=== PATIENT | female | born 1995 | race Two or more races ===

== ENCOUNTER 2016-04-05 14:49 | Emergency (ER) | payer SELFPAY ==
--- NOTE | 2016-04-05 15:22 | ER Document Report ---
ED Medical Screen (RME) - General Chief Complaint: Vag Bleeding, +preg <12wks Stated Complaint: VAGINAL BLEEDING Notes: vaginal bleeding and . LMP ? December? Had rectal bleeding yesterday. TRAVEL OUTSIDE OF THE [place] IN LAST 30 DAYS: No - Related Data Allergies/Adverse Reactions: No Known Allergies Allergy (Unverified 04/05/16 15:12) Past Medical History - Social History Chew tobacco use (# tins/day): No Frequency of alcohol use: None Drug Abuse: None Physical Exam - Vital signs Vitals: Temp Pulse Resp BP Pulse Ox 98.4 F 100 16 124/76 100 04/05/16 15:13 04/05/16 15:13 04/05/16 15:13 04/05/16 15:13 04/05/16 15:13 Course - Vital Signs Vital signs: Temp Pulse Resp BP Pulse Ox 98.4 F 100 16 124/76 100 04/05/16 15:13 04/05/16 15:13 04/05/16 15:13 04/05/16 15:13 04/05/16 15:13
[2016-04-05 15:44] LABS: ABSOLUTE EOSINOPHILS # (AUTO) 0.1 10^3/uL (0.0-0.6); ABSOLUTE LYMPHOCYTES (AUTO) 2.2 10^3/uL (0.5-4.7); ABSOLUTE MONOCYTES (AUTO) 0.5 10^3/uL (0.1-1.4); ABSOLUTE NEUT (AUTO) 4.2 10^3/uL (1.7-8.2); BASOPHILS % (AUTO) 0.4 % (0-2); EOSINOPHILS % (AUTO) 1.4 % (0-6); HEMATOCRIT 36.8 % (36.0-47.0); HEMOGLOBIN 12.2 g/dL (12.0-15.5); HGB HCT DIFFERENCE -0.2; LYMPHOCYTES % (AUTO) 31.4 % (13-45); MEAN CORPUSCULAR HEMOGLOBIN 29.6 pg (27.0-33.4); MEAN CORPUSCULAR HGB CONC 33.1 g/dL (32.0-36.0); MEAN CORPUSCULAR VOLUME 90 fl (80-97); RED BLOOD COUNT 4.11 10^6/uL (3.72-5.28); RED CELL DISTRIBUTION WIDTH 14.2 % (11.5-14.0); SEGMENTED NEUTROPHILS % (AUTO) 59.8 % (42-78)
--- NOTE | 2016-04-05 17:34 | ER Document Report ---
ED GI/ - General Mode of Arrival: Ambulatory Information source: Patient TRAVEL OUTSIDE OF THE [place] IN LAST 30 DAYS: No - HPI Patient complains to provider of: Vaginal bleeding Associated symptoms: Other - See above <KYUNG TAYLOR - Last Filed: 04/05/16 19:50> <EDWINSHERRELL - Last Filed: 04/20/16 01:15> - General Chief Complaint: Vag Bleeding, +preg <12wks Stated Complaint: VAGINAL BLEEDING Notes: Patient is a 20 year old female who presents to the emergency department complaining of vaginal bleeding onset this morning. Patient reports she is less than 12 weeks with her last period occurring in December, this is patient's first . Patient states that the bleeding has been spotty and denies any abdominal pain or vaginal discharge. Patient reports that she has had rough sex within the last 24 hours. Patient also reports she had bloody stools 2 days ago due to straining from passing a constipated bowel movement but this has since resolved and she has had normal bowel movements since. ( KYUNG TAYLOR) - Related Data Allergies/Adverse Reactions: No Known Allergies Allergy (Verified 04/06/16 21:00) Past Medical History - General Information source: Patient Last Menstrual Period: 12/22/2015 - Social History Smoking Status: Never Smoker Chew tobacco use (# tins/day): No Frequency of alcohol use: None Drug Abuse: None Family History: Reviewed & Not Pertinent Patient has suicidal ideation: No Patient has homicidal ideation: No Surgical Hx: Negative - Immunizations Hx Diphtheria, Pertussis, Tetanus Vaccination: Yes <KYUNG TAYLOR - Last Filed: 04/05/16 19:50> Review of Systems - Review of Systems Constitutional: No symptoms reported EENT: No symptoms reported Cardiovascular: No symptoms reported Respiratory: No symptoms reported Gastrointestinal: See HPI, Blood streaked bowels. denies: Abdominal pain Genitourinary: No symptoms reported Female Genitourinary: See HPI, Vaginal bleeding. denies: Vaginal discharge Musculoskeletal: No symptoms reported Skin: No symptoms reported Hematologic/Lymphatic: No symptoms reported Neurological/Psychological: No symptoms reported -: Yes All other systems reviewed and negative <KYUNG TAYLOR - Last Filed: 04/05/16 19:50> Physical Exam - Vital signs Interpretation: Normal - General General appearance: Appears well, Alert - HEENT Head: Normocephalic, Atraumatic - Respiratory Respiratory status: No respiratory distress Chest status: Nontender Breath sounds: Normal Chest palpation: Normal - Cardiovascular Rhythm: Regular Heart sounds: Normal auscultation Murmur: No - Abdominal Inspection: Normal Distension: No distension Bowel sounds: Normal Tenderness: Nontender Organomegaly: No organomegaly - Extremities General upper extremity: Normal inspection, Normal ROM, Normal strength General lower extremity: Normal inspection, Normal ROM, Normal strength, Normal temperature - Neurological Neuro grossly intact: Yes Cognition: Normal Orientation: AAOx4 Bert Coma Scale Eye Opening: Spontaneous [place] Coma Scale Verbal: Oriented [place] Coma Scale Motor: Obeys Commands [place] Coma Scale Total: 15 Speech: Normal - Psychological Associated symptoms: Normal affect, Normal mood - Skin Skin Temperature: Warm Skin Moisture: Dry Skin Color: Normal <KYUNG TAYLOR - Last Filed: 04/05/16 19:50> Course - Laboratory Result Diagrams: 04/05/16 15:20 - Consults Dr. Toribio Time consulted: 19:33 - Discussed ultrasound results and follow up care for patient <KYUNG TAYLOR - Last Filed: 04/05/16 19:50> - Laboratory Result Diagrams: 04/05/16 15:20 <SHERRELL PINEDA - Last Filed: 04/20/16 01:15> - Re-evaluation Re-evalutation: 04/05/16 18:46 I personally performed the services described in the documentation, reviewed and edited the documentation which was dictated to my scribe in my presence, and it accurately records my words and actions. Patient presents emergency, chief complaint of spotting this morning. She is has not had any care but has not had a period since December. She said she had rough intercourse last evening for she woke up and had some spotting on the tissue no active bleeding pain discharge history gonorrhea or chlamydia she has a dull pain flank pain is well-appearing nontoxic in no acute distress. Abdominal examination she has no acute tenderness guarding rebound rigidity. She states that she is chronically constipated 2 days ago she strained to have a bowel movement and had some blood drop on the tissue of the toilet paper. She said she's had subsequent bowel movement since then without any further bleeding. 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 However the patient's quantitative beta hCG is only [address] Toribio is consultant for INDUSTRY SEGMENT SPECIALIST he said that doesn't make sense to him that he would expect significantly elevated quantitative beta hCGs in a patient with molar . He stated to have her call the office at 8:00 tomorrow and to be seen tomorrow a.m. in the office explained to her that there are some concerns on the ultrasound and there and repeat the ultrasound in the office tomorrow. She is to return immediately for increasing worsening or new symptoms (SHERRELL PINEDA) - Vital Signs Vital signs: Temp Pulse Resp BP Pulse Ox 98.6 F 77 18 122/77 96 04/05/16 19:54 04/05/16 19:54 04/05/16 19:54 04/05/16 19:54 04/05/16 19:54 (KYUNG TAYLOR) (SHERRELL PINEDA) - Laboratory Laboratory results interpreted by me: 04/05/16 04/05/16 15:20 15:20 RDW 14.2 H Beta HCG, Quant 6699.60 H (KYUNG TAYLOR) (SHERRELL PINEDA) Discharge <KYUNG TAYLOR - Last Filed: 04/05/16 19:50> <SHERRELL PINEDA - Last Filed: 04/20/16 01:15> - Discharge Clinical Impression: Vaginal bleeding, Abnormal ultrasound Condition: Stable Disposition: HOME, SELF-CARE Additional Instructions: : You are . care is best started as early in as possible. If you're unsure about continuing this , you should discuss this with your physician or with associate professor of radiology at [facility]. You should take only medications approved by your physician. Acetaminophen can safely be taken for minor pains. As a rule, medication for chronic conditions such as asthma or seizures can safely be continued. You should discuss with the physician every medicine you take. Any regular exercise program can be continued. Talk to your physician, however, before engaging in competitive or demanding sports. Alcohol, smoking, and "street drugs" are dangerous to your baby. Cocaine is especially dangerous. Don't use any illicit drugs! BLEEDING DURING EARLY : You have been evaluated for passing blood while . While we take this symptom very seriously, most women with your degree of bleeding will go on to have a perfectly normal baby. At this time, there is no indication that a miscarriage will occur. (A miscarriage occurs when the fetus is abnormal. There is no medicine or treatment to prevent it.) A more serious cause of bleeding is tubal (or ectopic) . An ultrasound usually can show whether the is in the uterus or in the tube. Sometimes in early , no fetus is seen. In this case, careful follow-up, including repeat blood tests and repeat ultrasound, is necessary. Do not douche or have sex for at least a week, or until OK'd by the doctor. Don't use tampons. Call the doctor or return for re-examination if there is an increase in bleeding or cramping, extreme weakness, fainting, new abdominal pain, fever, or passage of tissue. FOLLOW-UP CARE: If you have been referred to a physician for follow-up care, call the physician s office for an appointment as you were instructed or within the next two days. If you experience worsening or a significant change in your symptoms (very heavy bleeding with large clots of blood, passage of tissue, more severe abdominal / pelvic pain or cramping, feeling faint or severe weakness, fever, etc.), notify the physician immediately or return to the Emergency Department at any time for re-evaluation. OBSTETRIC-GYNECOLOGIC (OB-ASSURANCE SPECIALIST) PHYSICIANS IN [place]: Referrals: LAZARO GALEANO, [[facility]] - Follow up tomorrow (I spoke with Dr. Toribio on the telephone he is is consultant for INDUSTRY SEGMENT SPECIALIST he want you to call the office at 8:00 tomorrow morning and he wants her to be seen in the office tomorrow morning. When you call them you are to tell them that the INDUSTRY SEGMENT SPECIALIST physician want she to be seen tomorrow morning. Return to the ER sooner for increasing worsening or new symptoms) Scribe Documentation - Scribe Written by Corrina:: corrina Pruitt, 04/05/16, 1800 acting as scribe for :: Edwin <KYUNG TAYLOR - Last Filed: 04/05/16 19:50>
[2016-04-05 19:57] VITALS: BP 122/77
--- NOTE | 2016-04-19 20:26 | ER Document Report ---
Doctor's Note Notes: 04/19/16 20:25 diagnosis 1. acute vaginal spotting with 2. abnormal vaginal ultrsound with concerns for molar
== END 2016-04-05 19:54 | disposition home or self-care (01) ==
LOC: ER 14:49
DX: O46.91 Antepartum hemorrhage, unspecified, first trimester (principal)
CPT/HCPCS: 36415; 76817; 84702; 85025; 86900; 86901; 93976; 99284

== ENCOUNTER 2016-04-06 19:46 | Emergency (ER) | payer SELFPAY ==
[2016-04-06 20:57] VITALS: BP 106/82
--- NOTE | 2016-04-06 21:10 | ER Document Report ---
ED Medical Screen (RME) - General Chief Complaint: Vaginal Bleeding Stated Complaint: VAGINAL BLEEDING Time seen by provider: 21:08 Mode of Arrival: Ambulatory Information source: Patient Notes: 2o yo female presents to ed for vaginal bleeding for an hours. she has on her first pad. She states she is 12 weeks . LMP 12/22/15 TRAVEL OUTSIDE OF THE [place] IN LAST 30 DAYS: No - HPI Onset: This morning Onset/Duration: Worse Quality of pain: Cramping Severity: None Pain Level: Denies Associated Symptoms: Abdominal pain, Vaginal bleeding - 12 weeks Exacerbated by: Denies Relieved by: Denies Similar symptoms previously: No Recently seen / treated by doctor: Yes - Related Data Smoking: Non-smoker Frequency of alcohol use: None Drug Abuse: None Allergies/Adverse Reactions: No Known Allergies Allergy (Verified 04/06/16 21:00) Past Medical History - Social History Chew tobacco use (# tins/day): No Frequency of alcohol use: None Drug Abuse: None - Immunizations Hx Diphtheria, Pertussis, Tetanus Vaccination: Yes Physical Exam - Vital signs Vitals: Temp Pulse Resp BP Pulse Ox 98.0 F 69 20 106/82 99 04/06/16 20:55 04/06/16 20:55 04/06/16 20:55 04/06/16 20:55 04/06/16 20:55 Course - Vital Signs Vital signs: Temp Pulse Resp BP Pulse Ox 98.0 F 69 20 106/82 99 04/06/16 20:55 04/06/16 20:55 04/06/16 20:55 04/06/16 20:55 04/06/16 20:55
[2016-04-06 22:13] LABS: ABSOLUTE EOSINOPHILS # (AUTO) 0.1 10^3/uL (0.0-0.6); ABSOLUTE LYMPHOCYTES (AUTO) 3.1 10^3/uL (0.5-4.7); ABSOLUTE MONOCYTES (AUTO) 0.6 10^3/uL (0.1-1.4); BASOPHILS % (AUTO) 0.4 % (0-2); EOSINOPHILS % (AUTO) 0.8 % (0-6); HEMATOCRIT 35.7 % (36.0-47.0); HGB HCT DIFFERENCE 0.3; LYMPHOCYTES % (AUTO) 35.1 % (13-45); MEAN CORPUSCULAR HEMOGLOBIN 30.1 pg (27.0-33.4); MEAN CORPUSCULAR HGB CONC 33.5 g/dL (32.0-36.0); MEAN CORPUSCULAR VOLUME 90 fl (80-97); MONOCYTES % (AUTO) 6.7 % (3-13); RED BLOOD COUNT 3.98 10^6/uL (3.72-5.28); RED CELL DISTRIBUTION WIDTH 13.8 % (11.5-14.0); WHITE BLOOD COUNT 8.8 10^3/uL (4.0-10.5)
[2016-04-06 22:15] LABS: APPEARANCE,URINE SLIGHTLY-CLOUDY; BILIRUBIN,URINE NEGATIVE (NEGATIVE); GLUCOSE, URINE NEGATIVE (NEGATIVE); KETONES,URINE 20 mg/dL (NEGATIVE); LEUKOCYTE ESTERASE,URINE NEGATIVE (NEGATIVE); NITRITE,URINE NEGATIVE (NEGATIVE); PROTEIN,URINE NEGATIVE (NEGATIVE); URINE SPECIFIC GRAVITY 1.018; UROBILINOGEN,URINE NEGATIVE mg/dL (<2.0)
[2016-04-06 22:31] LABS: ALANINE AMINOTRANSFERASE 158 U/L (9-52); ALBUMIN 4.7 g/dL (3.5-5.0); ALKALINE PHOSPHATASE 48 U/L (38-126); ANION GAP 14 (5-19); ASPARTATE AMINO TRANSFERASE 96 U/L (14-36); BILIRUBIN,TOTAL 0.7 mg/dL (0.2-1.3); BLOOD UREA NITROGEN 8 mg/dL (7-20); CALCIUM 9.7 mg/dL (8.4-10.2); CARBON DIOXIDE 24 mmol/L (22-30); CHLORIDE 101 mmol/L (98-107); CREATININE RESULT 0.57 mg/dL (0.52-1.25); GLUCOSE 84 mg/dL (75-110); POTASSIUM 4.1 mmol/L (3.6-5.0); SODIUM 139.1 mmol/L (137-145); TOTAL PROTEIN 7.8 g/dL (6.3-8.2)
== END 2016-04-06 23:00 | disposition left against medical advice (07) ==
LOC: ER 19:46
DX: Z53.9 Procedure and treatment not carried out, unspecified reason (principal); N93.9 Abnormal uterine and vaginal bleeding, unspecified; Z3A.12 12 weeks gestation of pregnancy; R10.9 Unspecified abdominal pain
CPT/HCPCS: 36415; 80053; 81001; 84702; 85025; 86900; 86901; 99281

== ENCOUNTER 2016-04-09 16:52 | Observation (INO) | payer SELFPAY ==
[2016-04-09] MEDS ORDERED: MORPHINE SULFATE 10 MG/ML INJ IV ONE (17:13)
[2016-04-09] MEDS ORDERED: KETOROLAC TROMETHAMINE INJ/PF 30 MG/1 ML SDV IV ONE (17:13)
[2016-04-09] MEDS ORDERED: NORMAL SALINE 1000 ML 1,000 ML IV ONE (17:13)
--- NOTE | 2016-04-09 17:15 | ER Document Report ---
ED GI/ - General Chief Complaint: Vag Bleeding, +preg <12wks Stated Complaint: ABDOMINAL PAIN Notes: Patient is a 20-year-old female, , presents by EMS with severe lower abdominal cramping and vaginal bleeding. She was seen in the ER 3 days ago and diagnosed with a miscarriage. She is scheduled for a D&C tomorrow. Her blood type is O+. She denies lightheadedness, chest pain, nausea, vomiting, urinary symptoms, diarrhea or constipation. TRAVEL OUTSIDE OF THE [place] IN LAST 30 DAYS: No - Related Data Allergies/Adverse Reactions: No Known Allergies Allergy (Verified 04/06/16 21:00) Past Medical History - General Information source: Patient - Social History Smoking Status: Unknown if Ever Smoked Family History: Reviewed & Not Pertinent - Immunizations Hx Diphtheria, Pertussis, Tetanus Vaccination: Yes Review of Systems - Review of Systems Notes: REVIEW OF SYSTEMS: CONSTITUTIONAL: -fevers, -chills EENT: -eye pain, -difficulty swallowing, -nasal congestion CARDIOVASCULAR:-chest pain, -syncope. RESPIRATORY: -cough, -SOB GASTROINTESTINAL: +abdominal pain, - nausea, -vomiting, -diarrhea GENITOURINARY: -dysuria, -hematuria, +vaginal bleeding MUSCULOSKELETAL: -back pain, -neck pain SKIN: -rash or skin lesions. HEMATOLOGIC: -easy bruising or bleeding. LYMPHATIC: -swollen, enlarged glands. NEUROLOGICAL: -altered mental status or loss of consciousness, -headache, - neurologic symptoms PSYCHIATRIC: -anxiety, -depression. ALL OTHER SYSTEMS REVIEWED AND NEGATIVE. Physical Exam - Vital signs Vitals: Temp Pulse Resp BP Pulse Ox 97.6 F 79 22 H 98/49 L 100 04/09/16 17:00 04/09/16 17:00 04/09/16 17:00 04/09/16 17:00 04/09/16 17:00 118/72, HR 76, Pulse Ox 99%, RR 16 Interpretation: Normal - Notes Notes: PHYSICAL EXAMINATION: GENERAL: In moderate distress. HEAD: Atraumatic, normocephalic. EYES: Pupils equal round and reactive to light, extraocular movements intact, sclera anicteric, conjunctiva are normal. ENT: nares patent, oropharynx clear without exudates. Moist mucous membranes. NECK: Normal range of motion, supple without lymphadenopathy LUNGS: Breath sounds clear to auscultation bilaterally and equal. No wheezes rales or rhonchi. HEART: Regular rate and rhythm without murmurs ABDOMEN: Lower abdominal tenderness. Normal bowel sounds : Active vaginal bleeding. EXTREMITIES: Normal range of motion, no pitting or edema. No cyanosis. NEUROLOGICAL: Cranial nerves grossly intact. Normal speech, normal gait. Normal sensory, motor, and reflex exams. PSYCH: Normal mood, normal affect. SKIN: Warm, Dry, normal turgor, no rashes or lesions noted. Course - Re-evaluation Re-evalutation: 04/09/16 18:38 and pain-free at this time. Hemoglobin dropped from 12-11 in 2 days. No need for blood transfusion at this time. Tachycardia improved to 102 and blood pressure 112/78. Patient still having active vaginal bleeding. Spoke to Dr. Jillian Stone (OB commission specialist) and she has accepted patient as observation tonight. Patient and family comfortable with plan. - Vital Signs Vital signs: Temp Pulse Resp BP Pulse Ox 97.6 F 79 22 H 98/49 L 100 04/09/16 17:00 04/09/16 17:00 04/09/16 17:00 04/09/16 17:00 04/09/16 17:00 - Laboratory Result Diagrams: 04/09/16 17:00 Laboratory results interpreted by me: 04/09/16 04/09/16 17:00 17:00 WBC 10.8 H RBC 3.71 L Hgb 11.0 L Hct 33.6 L Beta HCG, Quant 3157.90 H Discharge - Discharge Clinical Impression: Incomplete miscarriage, Blood loss Condition: Stable Disposition: ADMITTED OBSERVATION Admitting Provider: Dr. Jillian Stone Unit Admitted: Surgical Floor
[2016-04-09 17:28] LABS: ABSOLUTE EOSINOPHILS # (AUTO) 0.2 10^3/uL (0.0-0.6); ABSOLUTE LYMPHOCYTES (AUTO) 3.2 10^3/uL (0.5-4.7); ABSOLUTE MONOCYTES (AUTO) 0.5 10^3/uL (0.1-1.4); ABSOLUTE NEUT (AUTO) 6.8 10^3/uL (1.7-8.2); BASOPHILS % (AUTO) 0.3 % (0-2); EOSINOPHILS % (AUTO) 1.6 % (0-6); HEMATOCRIT 33.6 % (36.0-47.0); HGB HCT DIFFERENCE -0.6; MEAN CORPUSCULAR HEMOGLOBIN 29.6 pg (27.0-33.4); MEAN CORPUSCULAR HGB CONC 32.7 g/dL (32.0-36.0); MEAN CORPUSCULAR VOLUME 90 fl (80-97); MONOCYTES % (AUTO) 4.9 % (3-13); RED BLOOD COUNT 3.71 10^6/uL (3.72-5.28); RED CELL DISTRIBUTION WIDTH 13.8 % (11.5-14.0); SEGMENTED NEUTROPHILS % (AUTO) 63.2 % (42-78); WHITE BLOOD COUNT 10.8 10^3/uL (4.0-10.5)
[2016-04-09 21:37] LABS: ABSOLUTE LYMPHOCYTES (AUTO) 1.3 10^3/uL (0.5-4.7); ABSOLUTE MONOCYTES (AUTO) 0.4 10^3/uL (0.1-1.4); ABSOLUTE NEUT (AUTO) 12.9 10^3/uL (1.7-8.2); BASOPHILS % (AUTO) 0.1 % (0-2); HEMATOCRIT 28.9 % (36.0-47.0); HEMOGLOBIN 9.5 g/dL (12.0-15.5); HGB HCT DIFFERENCE -0.4; LYMPHOCYTES % (AUTO) 8.8 % (13-45); MEAN CORPUSCULAR HEMOGLOBIN 29.3 pg (27.0-33.4); MEAN CORPUSCULAR HGB CONC 32.7 g/dL (32.0-36.0); MEAN CORPUSCULAR VOLUME 90 fl (80-97); MONOCYTES % (AUTO) 2.9 % (3-13); RED BLOOD COUNT 3.23 10^6/uL (3.72-5.28); SEGMENTED NEUTROPHILS % (AUTO) 88.2 % (42-78); WHITE BLOOD COUNT 14.7 10^3/uL (4.0-10.5)
[2016-04-09] MEDS ORDERED: MISOPROSTOL 0.2 MG TABLET PO ONE (22:53)
[2016-04-09] MEDS ORDERED: MORPHINE SULFATE 10 MG/ML INJ IV PRN (22:53)
--- NOTE | 2016-04-09 23:05 | PDOC H&P ---
History of Present Illness Admission Date/PCP: 04/09/16 18:58 Patient complains of: increased vaginal bleeding History of Present Illness: ROD WEATHERS is a 20 year old female Pt presents with known early miscarriage and increased bleeding with clots. She states she has passed clots and tissue today. She is currently denying lightheadedness, dizziness, headache, chest pain. Bleeding has slowed and is now closer to a period though still somewhat heavy. Large clot with questionable sac seen in toilet hat. Sono last week showed irreg sac without pole or yolk sac. Pt is scheduled for D&E in am. Past Medical History LMP: 12 weeks ago Gynecological Infection: No Past Surgical History Past Surgical History: Reports: None Social History Information Source: Patient Smoking Status: Never Smoker Frequency of Alcohol Use: None Hx Recreational Drug Use: No Drugs: None Hx Prescription Drug Abuse: No Family History Family History: None, Reviewed & Not Pertinent Parental Family History Reviewed: Yes Children Family History Reviewed: Yes Sibling(s) Family History Reviewed.: Yes Medication/Allergy Home Medications: No Home Medications 04/09/16 Allergies/Adverse Reactions: No Known Allergies Allergy (Verified 04/06/16 21:00) Physical Exam - Physical Exam Vital Signs: Temp Pulse Resp BP Pulse Ox 98.5 F 110 H 20 108/68 98 04/09/16 19:43 04/09/16 20:43 04/09/16 19:43 04/09/16 19:43 04/09/16 19:43 - Obstetrical Exam External Genitalia: normal Vagina: normal Dilation (cm): 0 Effacement (%): 0 Tender: No - 8-10 week size Adhexa: normal Result Laboratory Results: 04/09/16 21:17 04/09/16 21:17 WBC 14.7 H RBC 3.23 L Hgb 9.5 L Hct 28.9 L MCV 90 MCH 29.3 MCHC 32.7 RDW 14.0 Plt Count 208 Seg Neutrophils % 88.2 H Lymphocytes % 8.8 L Monocytes % 2.9 L Eosinophils % 0.0 Basophils % 0.1 Absolute Neutrophils 12.9 H Absolute Lymphocytes 1.3 Absolute Monocytes 0.4 Absolute Eosinophils 0.0 Absolute Basophils 0.0 Assessment & Plan - Diagnosis (1) Incomplete miscarriage Is this a current diagnosis for this admission?: YesPlan: Re-evaluate sono to see if significant POC remain in uterus. Cytotec 0.8mcg given po for bleeding. Plan D&C if further significant blood loss or if significant tissue remaining in utero
[2016-04-10] MEDS: RINGERS SOLUTION,LACTATED 1,000 ML IV PRN ×2 (00:11→11:06)
[2016-04-10] MEDS ORDERED: PROMETHAZINE HCL INJ 25 MG/1 ML VIAL IV PRN (01:10)
[2016-04-10 07:25] LABS: ABSOLUTE EOSINOPHILS # (AUTO) 0.1 10^3/uL (0.0-0.6); ABSOLUTE LYMPHOCYTES (AUTO) 2.8 10^3/uL (0.5-4.7); ABSOLUTE MONOCYTES (AUTO) 0.4 10^3/uL (0.1-1.4); ABSOLUTE NEUT (AUTO) 6.1 10^3/uL (1.7-8.2); BASOPHILS % (AUTO) 0.3 % (0-2); EOSINOPHILS % (AUTO) 1.1 % (0-6); HEMATOCRIT 25.6 % (36.0-47.0); HEMOGLOBIN 8.8 g/dL (12.0-15.5); HGB HCT DIFFERENCE 0.8; LYMPHOCYTES % (AUTO) 29.9 % (13-45); MEAN CORPUSCULAR HEMOGLOBIN 30.4 pg (27.0-33.4); MEAN CORPUSCULAR HGB CONC 34.4 g/dL (32.0-36.0); MEAN CORPUSCULAR VOLUME 88 fl (80-97); MONOCYTES % (AUTO) 4.5 % (3-13); RED BLOOD COUNT 2.89 10^6/uL (3.72-5.28); RED CELL DISTRIBUTION WIDTH 13.9 % (11.5-14.0); SEGMENTED NEUTROPHILS % (AUTO) 64.2 % (42-78); WHITE BLOOD COUNT 9.5 10^3/uL (4.0-10.5)
[2016-04-10] MEDS ORDERED: ONDANSETRON HCL INJ/PF 4 MG/2 ML SDV ONE (08:13)
[2016-04-10] MEDS ORDERED: SUCCINYLCHOLINE CHLORIDE INJ 200 MG/10 ML VIAL ONE (08:13)
[2016-04-10] MEDS ORDERED: KETOROLAC TROMETHAMINE 60 MG/2 ML SDV ONE (08:13)
[2016-04-10] MEDS ORDERED: DEXAMETHASONE SOD PHOSPHATE INJ 4 MG/1 ML VIAL ONE (08:13)
[2016-04-10] MEDS ORDERED: LIDOCAINE 2% INJ-PF (20 MG/ML) 10 ML AMPUL ONE (08:13)
--- NOTE | 2016-04-10 13:03 | Operative Report ---
Operative Report DATE OF SURGERY: 04/10/16 PREOPERATIVE DIAGNOSIS: Incomplete AB POSTOPERATIVE DIAGNOSIS: Same OPERATION: Suction D&C SURGEON: LANDON GREENWOOD ANESTHESIA: GA TISSUE REMOVED OR ALTERED: Uterine contents COMPLICATIONS: None ESTIMATED BLOOD LOSS: 10 mL INTRAOPERATIVE FINDINGS: Sound to 8 cm before and after the case PROCEDURE: Patient was taken to the OR and placed in supine position. Gen. anesthesia was induced. She was placed in dorsolithotomy position using Misha stirrups. Her perineum and vagina were prepared and draped in sterile fashion. Her bladder was emptied with a red rubber catheter. A weighted speculum was placed in the vagina and the anterior lip cervix was grasped with a tenaculum. Sounded to 8 cm before and after the case. Size 10 suction curet was used to evacuate the uterine contents. No dilatation was needed. A gentle sharp curettage at the end of the case revealed no retained products. All instruments were removed and she is placed back in supine position. She is extubated and taken to recovery in stable condition.
[2016-04-10] MEDS ORDERED: OXYCODONE-ACETAMINOPHEN 5-325 MG TABLET PO PRN ×2 (13:56→13:58)
[2016-04-10] MEDS ORDERED: MORPHINE SULFATE 10 MG/ML INJ IV PRN (13:59)
[2016-04-10 16:57] VITALS: BP 121/77
== END 2016-04-10 17:30 | disposition home or self-care (01) ==
LOC: ER 16:52 → UNDOADMOB 18:58 → EH 18:58 → 2N 19:38 → EH 19:45
PROVIDERS: ADMIT Obstetrics & Gynecology; ATTEND Obstetrics & Gynecology
PROC: 10D17ZZ Extraction of Products of Conception, Retained, Via Natural or Artificial Opening (ICD-10-PCS; principal; 2016-04-10 12:15)
DX: O03.1 Delayed or excessive hemorrhage following incomplete spontaneous abortion (principal)
CPT/HCPCS: 99284; 96361; 96374; 96375; 86900; 86901; 36415; 86850; 84702; 85025 ×2; 88305 ×2; 76817; 93976; 59812; G0378 ×2; J1100; J1885 ×2; J2270 ×2; J2550; J0330; J2405; J7030; J7120; J3490; 1965

== ENCOUNTER 2016-04-26 08:34 | Emergency (ER) | payer SELFPAY ==
[2016-04-26 09:36] LABS: APPEARANCE,URINE SLIGHTLY-CLOUDY; BILIRUBIN,URINE NEGATIVE (NEGATIVE); GLUCOSE, URINE NEGATIVE (NEGATIVE); KETONES,URINE NEGATIVE (NEGATIVE); LEUKOCYTE ESTERASE,URINE NEGATIVE (NEGATIVE); NITRITE,URINE NEGATIVE (NEGATIVE); PROTEIN,URINE NEGATIVE (NEGATIVE); URINE SPECIFIC GRAVITY 1.014; UROBILINOGEN,URINE NEGATIVE mg/dL (<2.0)
--- NOTE | 2016-04-26 12:07 | ER Document Report ---
[id number] PAIN Mode of Arrival: Ambulatory Information source: Patient Notes: 20-year-old female presents with complaints of urinary frequency pelvic pain of a few day duration. Patient denies any nausea vomiting denies any fevers or chills. Patient notes that she had a D&C performed for miscarriage 2 weeks ago and has not followed up TRAVEL OUTSIDE OF THE [place] IN LAST 30 DAYS: No - HPI Onset: Last week Onset/Duration: Persistent Quality of pain: Achy Severity: Mild Pain Level: Denies Associated symptoms: None Exacerbated by: Denies Relieved by: Denies Similar symptoms previously: No Recently seen / treated by doctor: Yes - Related Data Allergies/Adverse Reactions: No Known Allergies Allergy (Verified 04/26/16 08:39) Past Medical History - General Last Menstrual Period: 12/22/15 - Social History Smoking Status: Never Smoker Cigarette use (# per day): No Chew tobacco use (# tins/day): No Smoking Education Provided: No Frequency of alcohol use: None Drug Abuse: None Family History: None, Reviewed & Not Pertinent Patient has suicidal ideation: No Patient has homicidal ideation: No Renal/ Medical History: Denies: Hx Peritoneal Dialysis - Immunizations Hx Diphtheria, Pertussis, Tetanus Vaccination: Yes Review of Systems - Review of Systems Notes: REVIEW OF SYSTEMS: CONSTITUTIONAL : Denies fever, chills, or sweats. Denies recent illness. EENT: Denies eye, ear, throat, or mouth pain or symptoms. Denies nasal or sinus congestion or discharge. Denies throat, tongue, or mouth swelling or difficulty swallowing. CARDIOVASCULAR: Denies chest pain. Denies palpitations or racing or irregular heart beat. Denies ankle edema. RESPIRATORY: Denies cough, cold, or chest congestion. Denies shortness of breath, difficulty breathing, or wheezing. GASTROINTESTINAL: Denies abdominal pain or distention. Denies nausea, vomiting , or diarrhea. Denies blood in vomitus, stools, or per rectum. Denies black, tarry stools. Denies constipation. GENITOURINARY: Admits to burning on urination FEMALE GENITOURINARY: Admits to pelvic pain MUSCULOSKELETAL: Denies back or neck pain or stiffness. Denies joint pain or swelling. SKIN: Denies rash, lesions or sores. HEMATOLOGIC : Denies easy bruising or bleeding. LYMPHATIC: Denies swollen, enlarged glands. NEUROLOGICAL: Denies confusion or altered mental status. Denies passing out or loss of consciousness. Denies dizziness or lightheadedness. Denies headache. Denies weakness or paralysis or loss of use of either side. Denies problems with gait or speech. Denies sensory loss, numbness, or tingling. Denies seizures. PSYCHIATRIC: Denies anxiety or stress. Denies depression, suicidal ideation, or homicidal ideation. ALL OTHER SYSTEMS REVIEWED AND NEGATIVE. Dictation was performed using [employer] voice recognition software PHYSICAL EXAMINATION: GENERAL: Well-appearing, well-nourished and in no acute distress. HEAD: Atraumatic, normocephalic. EYES: Pupils equal round and reactive to light, extraocular movements intact, conjunctiva are normal. ENT: Nares patent, oropharynx clear without exudates. Moist mucous membranes. NECK: Normal range of motion, supple without lymphadenopathy LUNGS: Breath sounds clear to auscultation bilaterally and equal. No wheezes rales or rhonchi. HEART: Regular rate and rhythm without murmurs ABDOMEN: Soft, nontender, nondistended abdomen. No guarding, no rebound. No masses appreciated. Female : deferred by patient Musculoskeletal: Normal range of motion, no pitting or edema. No cyanosis. NEUROLOGICAL: Cranial nerves grossly intact. Normal speech, normal gait. Normal sensory, motor exams PSYCH: Normal mood, normal affect. SKIN: Warm, Dry, normal turgor, no rashes or lesions noted. Physical Exam - Vital signs Vitals: Temp Pulse Resp BP Pulse Ox 98.6 F 109 H 16 111/78 100 04/26/16 08:43 04/26/16 08:43 04/26/16 08:43 04/26/16 08:43 04/26/16 08:43 Course - Re-evaluation Re-evalutation: 04/26/16 17:32 Patient sent from ultrasound, small amount of fluid was noted which would be expected. Patient otherwise is in no distress happy smiling. Denies any fevers or chills. Her Quant has decreased post d+c I will have patient follow up with her NETWORK PRICING CONSULTANT After performing a Medical Screening Examination, I estimate there is LOW risk for ACUTE CORONARY SYNDROME, RESPIRATORY FAILURE, SEPSIS OR MENINGITIS, thus I consider the discharge disposition reasonable. The patient and I have discussed the diagnosis and risks, and we agree with discharging home with close follow- up. We also discussed returning to the Emergency Department immediately if new or worsening symptoms occur. We have discussed the symptoms which are most concerning (e.g., changing or worsening pain, trouble swallowing or breathing, neck stiffness, fever) that necessitate immediate return. - Vital Signs Vital signs: Temp Pulse Resp BP Pulse Ox 98.1 F 95 16 108/75 100 04/26/16 12:40 04/26/16 12:40 04/26/16 12:40 04/26/16 12:40 04/26/16 12:40 - Laboratory Laboratory results interpreted by me: 04/26/16 04/26/16 09:15 11:25 Beta HCG, Quant 12.41 H Urine Blood SMALL H Urine HCG, Qual POSITIVE H - Diagnostic Test Radiology reviewed: Image reviewed, Reports reviewed Discharge - Discharge Clinical Impression: Pelvic pain, Increased frequency of urination Condition: Stable Disposition: HOME, SELF-CARE Additional Instructions: You must contact your NETWORK PRICING CONSULTANT for reevaluation or return immediately if there is any worsening symptoms or any other concerns
[2016-04-26 12:43] VITALS: BP 108/75
== END 2016-04-26 12:41 | disposition home or self-care (01) ==
LOC: ER 08:34
DX: R10.2 Pelvic and perineal pain (principal); R35.0 Frequency of micturition; Z98.890 Other specified postprocedural states
CPT/HCPCS: 36415; 76817; 81001; 81025; 84702; 99284

== ENCOUNTER 2017-01-11 08:35 | Emergency (ER) | payer MEDICAID, OTHER ==
[2017-01-11 08:45] VITALS: BP 121/72
[2017-01-11 09:17] LABS: APPEARANCE,URINE SLIGHTLY-CLOUDY; BILIRUBIN,URINE NEGATIVE (NEGATIVE); GLUCOSE, URINE NEGATIVE (NEGATIVE); KETONES,URINE NEGATIVE (NEGATIVE); LEUKOCYTE ESTERASE,URINE NEGATIVE (NEGATIVE); NITRITE,URINE NEGATIVE (NEGATIVE); PROTEIN,URINE NEGATIVE (NEGATIVE); URINE SPECIFIC GRAVITY 1.015; UROBILINOGEN,URINE NEGATIVE mg/dL (<2.0)
--- NOTE | 2017-01-11 09:36 | ER Document Report ---
ED General - General Mode of Arrival: Ambulatory Information source: Patient TRAVEL OUTSIDE OF THE U.S. IN LAST 30 DAYS: No - General Chief Complaint: Medical Complaint Stated Complaint: MISSED PERIODS Time Seen by Provider: 01/11/17 09:01 Notes: Patient is a 21-year-old female who presents to the emergency department today secondary to "not having a period since the end of July". Patient states she recently moved here from [place], [place]. Patient has no complaints at this time. (SCOOTER DEL RIO) - Related Data Allergies/Adverse Reactions: No Known Allergies Allergy (Verified 01/11/17 08:41) Past Medical History - General Information source: Patient - Social History Smoking Status: Never Smoker Cigarette use (# per day): No Chew tobacco use (# tins/day): No Frequency of alcohol use: None Drug Abuse: None Lives with: Family Family History: None, Reviewed & Not Pertinent Patient has suicidal ideation: No - Medical History Medical History: Negative Surgical Hx: Negative - Immunizations Hx Diphtheria, Pertussis, Tetanus Vaccination: Yes Review of Systems - Review of Systems Constitutional: No symptoms reported EENT: No symptoms reported Cardiovascular: No symptoms reported Respiratory: No symptoms reported Gastrointestinal: No symptoms reported Genitourinary: No symptoms reported Female Genitourinary: See HPI, Other - missed period Musculoskeletal: No symptoms reported Skin: No symptoms reported Hematologic/Lymphatic: No symptoms reported Neurological/Psychological: No symptoms reported Physical Exam - Vital signs Vitals: Temp Pulse Resp BP Pulse Ox 99.7 F 103 H 16 121/72 96 01/11/17 08:40 01/11/17 08:40 01/11/17 08:40 01/11/17 08:40 01/11/17 08:40 - Notes Notes: Physical Exam: General: Alert, appears well. HEENT: Normocephalic. Atraumatic. PERRLA. Extraocular movements intact. Oropharynx clear. Neck: Supple. Respiratory: No respiratory distress. Abdominal: Normal Inspection. No distension. Extremities: Moves all four extremities. Neurological: Normal cognition. AAOx4. Normal speech. Psychological: Normal affect. Normal Mood. Skin: Warm. Dry. Normal color. (SCOOTER DEL RIO) - Vital Signs Vital signs: Temp Pulse Resp BP Pulse Ox 99.7 F 103 H 16 121/72 96 01/11/17 08:40 01/11/17 08:40 01/11/17 08:40 01/11/17 08:40 01/11/17 08:40 - Laboratory Laboratory results interpreted by me: 01/11/17 08:55 Urine Blood SMALL H Discharge - Discharge Clinical Impression: Secondary amenorrhea Condition: Stable Disposition: HOME, SELF-CARE Additional Instructions: Follow-up with [facility] for evaluation of your secondary amenorrhea. Referrals: [facility] [Provider Group] - Follow up in 1 week Scribe Attestation: 01/11/17 09:38 I personally performed the services described in the documentation, reviewed and edited the documentation which was dictated to the scribe in my presence, and it accurately records my words and actions. (NOEL METZGER) Scribe Documentation - Scribe Written by Lukas:: Lukas Lyons, 01/11/2017 1112 acting as scribe for :: Bev
== END 2017-01-11 09:44 | disposition home or self-care (01) ==
LOC: ER 08:35
DX: N91.1 Secondary amenorrhea (principal)
CPT/HCPCS: 81001; 81025; 99283

== ENCOUNTER 2017-05-07 13:45 | Emergency (ER) | payer OTHER ==
[2017-05-07 14:03] VITALS: BP 123/78
--- NOTE | 2017-05-07 15:13 | ER Document Report ---
HPI - HPI Patient complains to provider of: vaginal discharge for 3 days Onset: Other - 3 days Onset/Duration: Gradual Pain Level: 2 Context: 22 yo with dysuria and vaginal discharge for 3 days. No new sex partner, spouse deployed. No fever. No pelvic pain. Associated Symptoms: None Exacerbated by: Denies Relieved by: Denies Similar symptoms previously: No Recently seen / treated by doctor: No - ROS ROS below otherwise negative: Yes Systems Reviewed and Negative: Yes All other systems reviewed and negative - REPRODUCTIVE LMP: 03/05/17 states hx irregular period Reproductive: REPORTS: : Past Medical History - General Information source: Patient - Social History Smoking Status: Never Smoker Chew tobacco use (# tins/day): No Frequency of alcohol use: None Drug Abuse: None Lives with: Spouse/Significant other Family History: None, Reviewed & Not Pertinent Patient has suicidal ideation: No Patient has homicidal ideation: No - Medical History Medical History: Negative Renal/ Medical History: Denies: Hx Peritoneal Dialysis Past Surgical History: Reports: Hx Gynecologic Surgery - D&C - Immunizations Hx Diphtheria, Pertussis, Tetanus Vaccination: Yes Vertical Provider Document - CONSTITUTIONAL Agree With Documented VS: Yes Exam Limitations: No Limitations General Appearance: No Apparent Distress - INFECTION CONTROL TRAVEL OUTSIDE OF THE U.S. IN LAST 30 DAYS: No - HEENT HEENT: Normocephalic - NECK Neck: Supple - RESPIRATORY O2 Sat by Pulse Oximetry: 100 - GI/ABDOMEN Gastrointestinal: Abdomen Soft, Abdomen Non-Tender, No Organomegaly - MUSCULOSKELETAL/EXTREMETIES Musculoskeletal/Extremeties: MAEW, FROM - NEURO Level of Consciousness: Awake, Alert, Appropriate - DERM Integumentary: Warm, Dry, No Rash Course - Vital Signs Vital signs: Temp Pulse Resp BP Pulse Ox 98.7 F 103 H 20 123/78 100 05/07/17 14:02 05/07/17 14:02 05/07/17 14:02 05/07/17 14:02 05/07/17 14:02 Discharge - Discharge Clinical Impression: Bacterial vaginosis Condition: Good Disposition: HOME, SELF-CARE Instructions: Metronidazole ([facility]), Vaginosis, Bacterial ([facility]) Additional Instructions: return if symptoms worsen no Alcohol with Flagyl call me for the results of the stevo/chlam test at [phone] Prescriptions: Metronidazole [Flagyl 500 mg Tablet] 500 mg PO BID #14 tablet
[2017-05-07 15:52] LABS: T.VAGINALIS (WET MOUNT) NO TRICHOMONAS SEEN; WBCS (WET MOUNT) 1+ WBCS SEEN; YEAST (WET MOUNT) NO YEAST SEEN
[2017-05-07 15:53] LABS: BACTERIA (WET MOUNT) 4+ BACTERIA SEEN; EPITHELIALS (WET MOUNT) 3+ EPITHELIALS SEEN
[2017-05-07 16:07] LABS: APPEARANCE,URINE CLEAR; BILIRUBIN,URINE NEGATIVE (NEGATIVE); COLOR,URINE YELLOW; GLUCOSE, URINE NEGATIVE (NEGATIVE); KETONES,URINE NEGATIVE (NEGATIVE); LEUKOCYTE ESTERASE,URINE NEGATIVE (NEGATIVE); NITRITE,URINE NEGATIVE (NEGATIVE); PROTEIN,URINE NEGATIVE (NEGATIVE); URINE SPECIFIC GRAVITY 1.011; UROBILINOGEN,URINE NEGATIVE mg/dL (<2.0)
[2017-05-07 17:43] LABS: CHLAM PCR NOT DETECTED (NOT DETECT); GON PCR NOT DETECTED (NOT DETECT)
== END 2017-05-07 16:40 | disposition home or self-care (01) ==
LOC: ER 13:45
DX: N76.0 Acute vaginitis (principal); B96.89 Other specified bacterial agents as the cause of diseases classified elsewhere
CPT/HCPCS: 81001; 81025; 87210; 87491; 87591; 99283

== ENCOUNTER → 2017-05-24 | Outpatient (CLI) | payer OTHER ==
--- NOTE | 2017-05-24 14:27 | RADIOLOGY REPORT (SQ) ---
EXAM DESCRIPTION: HYSTEROSALPINGOGRAM; HYSTERO CATH/INJECTION COMPLETED DATE/TIME: 05/24/2017 1:40 pm REASON FOR STUDY: N97.9 FEMALE INFERTILITY, UNSPECIFIED; INFERTILITY N97.9 FEMALE INFERTILITY, UNSP ECIFIED COMPARISON: None. PROCEDURE: PRE-PROCEDURE: Procedure was explained to the patient. She was told to expect cramping du ring the procedure, and possible spotting post procedure. PROCEDURE: Under direct visual inspection, the cervix was cannulated with the hysterosalpingogram ca theter and contrast injected. TECHNIQUE: Temporal fluoroscopic images acquired during the procedure stored to PACS. FLUOROSCOPY TIME: Less than 10 seconds 9 digital radiographic images saved to PACS. LIMITATIONS: None. FINDINGS: UTERUS: No identified anomalies. No synechia. RIGHT ADNEXA: Normal size fallopian tube. Free spill of contrast into the peritoneal cavity. LEFT ADNEXA: Normal size fallopian tube. Free spill of contrast into the peritoneal cavity. POST PROCEDURE: The patient tolerated the procedure with no adverse effects. IMPRESSION: NORMAL HYSTEROSALPINGOGRAM. COMMENT: Quality ID [id number]: Final reports for procedures using fluoroscopy that document radiation exp osure indices, or exposure time and number of fluorographic images (if radiation exposure indices are not available) TECHNICAL DOCUMENTATION: JOB ID: [id number] [employer]- All Rights Reserved
== END ==
LOC: RAD 12:58
PROVIDERS: ATTEND Nurse Practitioner Primary Care
DX: N97.9 Female infertility, unspecified (principal)
CPT/HCPCS: 58340; 74740

== ENCOUNTER 2018-02-17 12:25 | Emergency (ER) | payer MEDICAID, OTHER ==
--- NOTE | 2018-02-17 12:55 | ER Document Report ---
ED Medical Screen (RME) - General Chief Complaint: Diarrhea Stated Complaint: ABDOMINAL PAIN,DIARRHEA Time Seen by Provider: 02/17/18 12:52 Mode of Arrival: Ambulatory Information source: Patient TRAVEL OUTSIDE OF THE U.S[place] IN LAST 30 DAYS: No - HPI Patient complains to provider of: stomach cramps, diarrhea Onset: Other - pt is approx 16 wks with onset of abd cramps and diarrhea for the past 2-3 days. - Related Data Allergies/Adverse Reactions: No Known Allergies Allergy (Verified 02/17/18 12:26) Past Medical History Renal/ Medical History: Denies: Hx Peritoneal Dialysis Past Surgical History: Reports: Hx Gynecologic Surgery - D&C - Immunizations Hx Diphtheria, Pertussis, Tetanus Vaccination: Yes Physical Exam - Vital signs Vitals: Temp Pulse Resp BP Pulse Ox 98.1 F 99 16 113/70 98 02/17/18 12:37 02/17/18 12:37 02/17/18 12:37 02/17/18 12:37 02/17/18 12:37 Course - Vital Signs Vital signs: Temp Pulse Resp BP Pulse Ox 98.1 F 99 16 113/70 98 02/17/18 12:37 02/17/18 12:37 02/17/18 12:37 02/17/18 12:37 02/17/18 12:37 Doctor's Discharge - Discharge Referrals: ABAD PULIDO NP [Primary Care Provider] - Follow up as needed
[2018-02-17 13:17] LABS: ABSOLUTE EOSINOPHILS # (AUTO) 0.1 10^3/uL (0.0-0.6); ABSOLUTE LYMPHOCYTES (AUTO) 2.1 10^3/uL (0.5-4.7); ABSOLUTE MONOCYTES (AUTO) 0.5 10^3/uL (0.1-1.4); ABSOLUTE NEUT (AUTO) 6.1 10^3/uL (1.7-8.2); BASOPHILS % (AUTO) 0.1 % (0-2); HEMATOCRIT 34.2 % (36.0-47.0); HEMOGLOBIN 11.6 g/dL (12.0-15.5); LYMPHOCYTES % (AUTO) 23.5 % (13-45); MEAN CORPUSCULAR HEMOGLOBIN 30.4 pg (27.0-33.4); MEAN CORPUSCULAR HGB CONC 33.9 g/dL (32.0-36.0); MEAN CORPUSCULAR VOLUME 90 fl (80-97); MONOCYTES % (AUTO) 6.1 % (3-13); PLATELET COUNT 262 10^3/uL (150-450); RED BLOOD COUNT 3.81 10^6/uL (3.72-5.28); RED CELL DISTRIBUTION WIDTH 14.5 % (11.5-14.0); SEGMENTED NEUTROPHILS % (AUTO) 69.3 % (42-78); TOTAL CELLS COUNTED % (AUTO) 100 %; WHITE BLOOD COUNT 8.8 10^3/uL (4.0-10.5)
[2018-02-17 13:36] LABS: ALANINE AMINOTRANSFERASE 9 U/L (9-52); ALKALINE PHOSPHATASE 42 U/L (38-126); ANION GAP 10 (5-19); ASPARTATE AMINO TRANSFERASE 21 U/L (14-36); BILIRUBIN,DIRECT 0.2 mg/dL (0.0-0.4); BILIRUBIN,TOTAL 0.3 mg/dL (0.2-1.3); BLOOD UREA NITROGEN 7 mg/dL (7-20); CALCIUM 9.9 mg/dL (8.4-10.2); CARBON DIOXIDE 26 mmol/L (22-30); CHLORIDE 103 mmol/L (98-107); GLUCOSE 81 mg/dL (75-110); POTASSIUM 4.2 mmol/L (3.6-5.0); SODIUM 139.2 mmol/L (137-145); TOTAL PROTEIN 7.1 g/dL (6.3-8.2)
[2018-02-17 13:42] LABS: AMORPHOUS SEDIMENT,URINE TRACE /HPF; APPEARANCE,URINE TURBID; BILIRUBIN,URINE NEGATIVE (NEGATIVE); COLOR,URINE AMBER; GLUCOSE, URINE NEGATIVE (NEGATIVE); KETONES,URINE NEGATIVE (NEGATIVE); LEUKOCYTE ESTERASE,URINE NEGATIVE (NEGATIVE); NITRITE,URINE NEGATIVE (NEGATIVE); PROTEIN,URINE NEGATIVE (NEGATIVE); URINE SPECIFIC GRAVITY 1.016; UROBILINOGEN,URINE NEGATIVE mg/dL (<2.0)
--- NOTE | 2018-02-17 14:42 | RADIOLOGY REPORT (SQ) ---
EXAM DESCRIPTION: U/S OB 14+ TA/1 GEST W/DOPPLER COMPLETED DATE/TIME: 02/17/2018 2:30 pm REASON FOR STUDY: abd pain COMPARISON: None. TECHNIQUE: Static and Dynamic grayscale imaging performed of gravid uterus using transabdominal appr oach. Additional selected color Doppler and spectral images recorded. All stored on PACS. LIMITATIONS: None. FINDINGS: FETUSES SEEN:1 EGA: 16 weeks 2 days Calculated using BPD,FL,HC,AC documented on images. No discrepancy with clinica l dates. ANDREW: 08/12/2018 EFW: 151 grams PERCENTILE: Not applicable. Fetus less than or equal to 20 weeks gestation. STU: Adequate PLACENTA: Anterior grade 0 PRESENTATION: Cephalic. ANATOMY: HEART RATE: 158 beats per minute. FOUR CHAMBER HEART: Visualized. THREE VESSEL CORD: Yes. CORD INSERTION: Visualized. KIDNEYS AND BLADDER: Visualized. Appear normal. STOMACH: Visualized. Appears normal. SPINE: Normal as visualized. BRAIN AND LATERAL VENTRICLES: Visualized. Appear normal. OTHER: No other significant finding. MATERNAL ADNEXA: Maternal ovaries not visualized. CERVICAL LENGTH: 3.3 cm Closed. OTHER: No other significant finding. IMPRESSION: LIVING INTRAUTERINE . ESTIMATED GESTATIONAL AGE 16 weeks 2 days NO VISUALIZED ANOMALIES. Trimester of : Second trimester - 13 weeks 1 day to 27 weeks 6 days. TECHNICAL DOCUMENTATION: JOB ID: [id number] [employer]- All Rights Reserved Reading location - IP/workstation name: [email or web address]
[2018-02-17] MEDS ORDERED: DIPHENHYDRAMINE HCL 25 MG CAPSULE PO ONE (14:59)
[2018-02-17] MEDS ORDERED: LOPERAMIDE HCL 2 MG CAPSULE PO ONE (14:59)
--- NOTE | 2018-02-17 15:03 | ER Document Report ---
ED General - General Chief Complaint: Diarrhea Stated Complaint: ABDOMINAL PAIN,DIARRHEA Time Seen by Provider: 02/17/18 12:52 Mode of Arrival: Ambulatory Information source: Patient, [facility] Records Notes: 22-year-old female A1 at 16 weeks and 2 days presents with complaint of abdominal cramping, diarrhea. Patient states that cramping and diarrhea started 5 days ago. She reports 4-5 episodes of nonbloody diarrhea daily. Her abdominal cramping only occurs just prior to her bowel movement and resolves afterwards. She denies any vaginal bleeding. She has been receiving care and reports an uneventful . Patient denies fever, chills, nausea , vomiting, abdominal pain, dysuria, hematuria back pain. She does have a at home with similar symptoms. TRAVEL OUTSIDE OF THE [place] IN LAST 30 DAYS: No - HPI Onset: Just prior to arrival Onset/Duration: Gradual, Persistent Quality of pain: Cramping Severity: Mild Associated symptoms: Diarrhea. denies: Body/muscle aches, Chest pain, Fever, Headache, Nausea, Vomiting, Shortness of breath Exacerbated by: Denies Relieved by: Denies Similar symptoms previously: No Recently seen / treated by doctor: Yes - Related Data Allergies/Adverse Reactions: No Known Allergies Allergy (Verified 02/17/18 12:26) Past Medical History - General Information source: Patient - Social History Smoking Status: Never Smoker Frequency of alcohol use: None Drug Abuse: None Lives with: Spouse/Significant other Family History: None, Reviewed & Not Pertinent Patient has suicidal ideation: No Patient has homicidal ideation: No Renal/ Medical History: Denies: Hx Peritoneal Dialysis Past Surgical History: Reports: Hx Gynecologic Surgery - D&C - Immunizations Hx Diphtheria, Pertussis, Tetanus Vaccination: Yes Review of Systems - Review of Systems Notes: REVIEW OF SYSTEMS: CONSTITUTIONAL : Denies fever, chills, or sweats. Denies recent illness. Denies weight loss, recent hospitalizations. EENT: Denies visual changes, eye pain. Denies sore throat, oral lesions, difficulty swallowing. CARDIOVASCULAR: Denies chest pain. Denies palpitations. Denies lower extremity edema. RESPIRATORY: Denies cough. Denies shortness of breath, wheezing. GASTROINTESTINAL: Denies abdominal distention. Denies nausea, vomiting. Denies blood in vomitus, stools, or per rectum. Denies black, tarry stools. Denies constipation. GENITOURINARY: Denies difficulty urinating, painful urination, frequency, blood in urine, or vaginal discharge. MUSCULOSKELETAL: Denies back or neck pain or stiffness. Denies joint pain or swelling. SKIN: Denies rash, lesions or sores. HEMATOLOGIC : Denies easy bruising or bleeding. LYMPHATIC: Denies swollen glands. NEUROLOGICAL: Denies confusion or altered mental status. Denies loss of consciousness. Denies dizziness or lightheadedness. Denies headache. Denies weakness or paralysis. Denies problems difficulty with ambulation, slurred speech. Denies sensory loss, numbness, or tingling. Denies seizures. PSYCHIATRIC: Denies anxiety or stress. Denies depression, suicidal ideation, or homicidal ideation. Denies visual or auditory hallucinations. Physical Exam - Vital signs Vitals: Temp Pulse Resp BP Pulse Ox 98.1 F 99 16 113/70 98 02/17/18 12:37 02/17/18 12:37 02/17/18 12:37 02/17/18 12:37 02/17/18 12:37 Interpretation: Normal. No: Tachycardic, Febrile - Notes Notes: PHYSICAL EXAMINATION: GENERAL: Well-appearing, well-nourished and in no acute distress. HEAD: Atraumatic, normocephalic. EYES: Pupils equal round and reactive to light, extraocular movements intact, conjunctiva are normal. ENT: Nares patent, oropharynx clear without exudates. Moist mucous membranes. NECK: Normal range of motion, supple without lymphadenopathy LUNGS: Breath sounds clear to auscultation bilaterally and equal. No wheezes rales or rhonchi. HEART: Regular rate and rhythm without murmurs ABDOMEN: Soft, nontender, nondistended abdomen. No guarding, no rebound. No masses appreciated. Female : Pelvic exam; External genitalia unremarkable. Speculum exam with discharge/no discharge. Vaginal wall unremarkable. Os closed. No cervical motion tenderness. No adnexal tenderness or masses appreciated. Musculoskeletal: Normal range of motion, no pitting or edema. No cyanosis. NEUROLOGICAL: Cranial nerves grossly intact. Normal speech, normal gait. Normal sensory, motor exams PSYCH: Normal mood, normal affect. SKIN: Warm, Dry, normal turgor, no rashes or lesions noted. Course - Re-evaluation Re-evalutation: 02/17/18 15:01 Laboratory 02/17/18 02/17/18 02/17/18 13:00 13:00 13:27 WBC 8.8 RBC 3.81 Hgb 11.6 L Hct 34.2 L MCV 90 MCH 30.4 MCHC 33.9 RDW 14.5 H Plt Count 262 Seg Neutrophils % 69.3 Lymphocytes % 23.5 Monocytes % 6.1 Eosinophils % 1.0 Basophils % 0.1 Absolute Neutrophils 6.1 Absolute Lymphocytes 2.1 Absolute Monocytes 0.5 Absolute Eosinophils 0.1 Absolute Basophils 0.0 Sodium 139.2 Potassium 4.2 Chloride 103 Carbon Dioxide 26 Anion Gap 10 BUN 7 Creatinine 0.48 L Est GFR ( Amer) > 60 Est GFR (Non-Af Amer) > 60 Glucose 81 Calcium 9.9 Total Bilirubin 0.3 Direct Bilirubin 0.2 Neonat Total Bilirubin Not Reportable Neonat Direct Bilirubin Not Reportable Neonat Indirect Bili Not Reportable AST 21 ALT 9 Alkaline Phosphatase 42 Total Protein 7.1 Albumin 4.0 Beta HCG, Quant 49234.00 H Total Beta HCG POSITIVE Urine Color JOS Urine Appearance TURBID Urine pH 7.0 Ur Specific Watkins 1.016 Urine Protein NEGATIVE Urine Glucose (UA) NEGATIVE Urine Ketones NEGATIVE Urine Blood NEGATIVE Urine Nitrite NEGATIVE Urine Bilirubin NEGATIVE Urine Urobilinogen NEGATIVE Ur Leukocyte Esterase NEGATIVE Urine WBC (Auto) 1 Urine RBC (Auto) 1 Urine Bacteria (Auto) TRACE Amorphous Sediment Auto TRACE Urine Mucus (Auto) RARE Urine Ascorbic Acid NEGATIVE Obstetrics Ultrasound 02/17/18 12:54 IMPRESSION: LIVING INTRAUTERINE . ESTIMATED GESTATIONAL AGE 16 weeks 2 days NO VISUALIZED ANOMALIES. Trimester of : Second trimester - 13 weeks 1 day to 27 weeks 6 days. 02/17/18 22:02 22-year-old female at 16 weeks 2 days presents with complaint of abdominal cramping and diarrhea that started 4 days ago. Vital signs reviewed upon arrival and within normal limits. Patient does not appear toxic or dehydrated. She is in no acute distress. Patient states abdominal cramping is associated with bowel movements. She denies any vaginal bleeding. She has been receiving care and has had a recent ultrasound with showed P. Repeat ultrasound was ordered by the physician in triage and does show an IUP at an estimated gestational age of 16 weeks with a heart rate of 158. Physical exam benign. Patient given 1 dose of Imodium in the emergency department. Advised to follow-up with RN FIELD as needed. Advised to drink plenty of fluids and return if she develops fever, vomiting, increased abdominal pain or vaginal bleeding. Patient was evaluated and treated as appropriate for the patient's presenting symptoms and complaint, with consideration of any critical or life threatening conditions that may be associated with their obtained history and exam as noted above. All results were discussed with patient. Patient provided the opportunity to ask questions, and express concerns. Patient was educated on treatments based on their presumed diagnosis as noted above. At this time we will discharge the patient with return precautions and follow-up recommendations. Verbal discharge instructions given a the bedside. Medication warnings reviewed. Patient is in agreement with this plan and has verbalized understanding of return precautions. After careful consideration I feel that that patient can be safely discharged from the emergency department, they were advised to followup with a primary care physician in 2-3 days. Dictation on this chart was performed using voice recognition software and may result in unintended grammatical, spelling, syntax or errors. - Vital Signs Vital signs: Temp Pulse Resp BP Pulse Ox 98.2 F 86 14 108/72 100 02/17/18 16:12 02/17/18 16:12 02/17/18 16:12 02/17/18 16:12 02/17/18 16:12 - Laboratory Result Diagrams: 02/17/18 13:00 02/17/18 13:27 Laboratory results interpreted by me: 02/17/18 02/17/18 13:00 13:27 Hgb 11.6 L Hct 34.2 L RDW 14.5 H Creatinine 0.48 L Beta HCG, Quant 98893.00 H - Diagnostic Test Radiology reviewed: Image reviewed, Reports reviewed Discharge - Discharge Clinical Impression: Abdominal cramping affecting , Second trimester Diarrhea Qualifiers: Diarrhea type: unspecified type Qualified Code(s): R19.7 - Diarrhea, unspecified Condition: Good Disposition: HOME, SELF-CARE Instructions: Abdominal Pain ([facility]), Diarrhea, Nonspecific ([facility]), ([facility] ) Additional Instructions: Your diarrhea is likely viral. Will likely resolve in the next 2-3 days. Drink plenty of fluids, avoid caffeine. You can take over the for diarrhea. If you experience any vaginal bleeding or increased abdominal pain please return immediately to the emergency department. Follow up with your [id number] hours for further care or return to the ED IMMEDIATELY if symptoms worsen or you have any concerns. If you cannot afford to follow up with your primary care physician a list of low cost clinics have been provided at the end of your discharge papers as well. Most prescribed medications have multiple side effects. The safest thing to do is when filling your prescription speak to your pharmacist regarding possible interactions with your normal home medications and over the counter medications such as Ibuprofen, Tylenol, Benadryl. If you experience any symptoms that cause you discomfort or concern you should discontinue the medication immediately and return to the emergency room or call your primary care physician. Referrals: ABAD PULIDO NP [Primary Care Provider] - Follow up as needed
[2018-02-17 16:13] VITALS: BP 108/72
== END 2018-02-17 16:12 | disposition home or self-care (01) ==
LOC: ER 12:25
DX: O26.892 Other specified pregnancy related conditions, second trimester (principal); R19.7 Diarrhea, unspecified; R10.9 Unspecified abdominal pain; Z3A.16 16 weeks gestation of pregnancy
CPT/HCPCS: 36415; 76805; 80053; 81001; 84702; 85025; 93976; 99284

== ENCOUNTER 2018-03-16 12:45 | Outpatient (CLI) | payer OTHER ==
[2018-03-16 16:11] LABS: APPEARANCE,URINE CLOUDY; BILIRUBIN,URINE NEGATIVE (NEGATIVE); COLOR,URINE YELLOW; GLUCOSE, URINE NEGATIVE (NEGATIVE); KETONES,URINE NEGATIVE (NEGATIVE); LEUKOCYTE ESTERASE,URINE NEGATIVE (NEGATIVE); NITRITE,URINE NEGATIVE (NEGATIVE); PROTEIN,URINE NEGATIVE (NEGATIVE); URINE SPECIFIC GRAVITY 1.012; UROBILINOGEN,URINE NEGATIVE mg/dL (<2.0)
[2018-03-16 16:40] LABS: URINE AMPHETAMINES SCREEN NEGATIVE; URINE BARBITURATES SCREEN NEGATIVE; URINE BENZODIAZEPINES SCREEN NEGATIVE; URINE COCAINE SCREEN NEGATIVE; URINE MARIJUANA (THC) SCREEN NEGATIVE; URINE METHADONE SCREEN NEGATIVE; URINE PHENCYCLIDINE SCREEN NEGATIVE
== END 2018-03-16 14:44 | disposition home or self-care (01) ==
LOC: LC 12:45
PROVIDERS: ATTEND Obstetrics & Gynecology
PROC: 4A1HXCZ Monitoring of Products of Conception, Cardiac Rate, External Approach (ICD-10-PCS; principal; 2018-03-16)
DX: O26.892 Other specified pregnancy related conditions, second trimester (principal); R10.30 Lower abdominal pain, unspecified; Z3A.20 20 weeks gestation of pregnancy
CPT/HCPCS: 80307; 81001

== ENCOUNTER 2018-05-26 16:21 | Outpatient (CLI) | payer OTHER ==
[2018-05-26 17:09] LABS: APPEARANCE,URINE CLEAR; BILIRUBIN,URINE NEGATIVE (NEGATIVE); COLOR,URINE STRAW; GLUCOSE, URINE NEGATIVE (NEGATIVE); KETONES,URINE NEGATIVE (NEGATIVE); LEUKOCYTE ESTERASE,URINE NEGATIVE (NEGATIVE); NITRITE,URINE NEGATIVE (NEGATIVE); PROTEIN,URINE NEGATIVE (NEGATIVE); URINE SPECIFIC GRAVITY 1.006; UROBILINOGEN,URINE NEGATIVE mg/dL (<2.0)
[2018-05-26 17:22] LABS: URINE AMPHETAMINES SCREEN NEGATIVE; URINE BARBITURATES SCREEN NEGATIVE; URINE BENZODIAZEPINES SCREEN NEGATIVE; URINE COCAINE SCREEN NEGATIVE; URINE MARIJUANA (THC) SCREEN NEGATIVE; URINE METHADONE SCREEN NEGATIVE; URINE PHENCYCLIDINE SCREEN NEGATIVE
--- NOTE | 2018-05-26 18:30 | RADIOLOGY REPORT (SQ) ---
EXAM DESCRIPTION: U/S OB LIMITED COMPLETED DATE/TIME: 05/26/2018 6:07 pm REASON FOR STUDY: pt c/o abd cramping COMPARISON: None. TECHNIQUE: Limited transabdominal grayscale ultrasound for evaluation of specific requested obstetri eusebia parameters. LIMITATIONS: None. FINDINGS: Live intrauterine with composite age of 30 weeks 2 days. EDC: Aug 02 2018. E FW 1529 g, 45th percentile. CERVICAL LENGTH: 4.5 cm Closed. STU: 13.7 cm. FHR: 157 beats per minute. PRESENTATION: Cephalic. PLACENTA: Anterior ANATOMY: Normal as visualized OTHER: No other significant findings. IMPRESSION: LIMITED OBSTETRICAL ULTRASOUND WITH MEASURED PARAMETERS DELINEATED ABOVE. Trimester of : Third trimester - 28 weeks to delivery. TECHNICAL DOCUMENTATION: JOB ID: [id number] [employer]- All Rights Reserved Reading location - IP/workstation name: [email or web address]
== END 2018-05-26 18:22 | disposition home or self-care (01) ==
LOC: LC 16:21
PROVIDERS: ATTEND Obstetrics & Gynecology
PROC: 4A1HXCZ Monitoring of Products of Conception, Cardiac Rate, External Approach (ICD-10-PCS; principal; 2018-05-26)
DX: O26.893 Other specified pregnancy related conditions, third trimester (principal); R10.2 Pelvic and perineal pain; Z3A.30 30 weeks gestation of pregnancy
CPT/HCPCS: 76815; 80307; 81001

== ENCOUNTER 2018-05-29 18:37 | Observation (INO) | payer OTHER ==
[2018-05-29] MEDS ORDERED: ACETAMINOPHEN 325 MG TABLET PO ONE (19:39)
[2018-05-29] MEDS ORDERED: NORMAL SALINE 1000 ML 1,000 ML IV ONE ×3 (19:39→23:36)
[2018-05-29] MEDS ORDERED: METOCLOPRAMIDE HCL INJ/PF 10 MG/2 ML SDV IV ONE (19:40)
[2018-05-29] MEDS ORDERED: CIPROFLOXACIN HCL/DEXAMETH OTIC DROP 7.5 ML AS ONE (19:43)
--- NOTE | 2018-05-29 19:45 | ER Document Report ---
ED General - General Chief Complaint: Sore Throat Stated Complaint: EAR PAIN, SORE THROAT,NAUSEA Time Seen by Provider: 05/29/18 19:32 Notes: Patient is a 23-year-old female, at 31 weeks gestation following with [facility] DEVELOPMENT MANAGER that comes emergency department for chief complaint of fever, sore throat, body aches, nausea, and she also has ear pain that she has been having for weeks in the left ear. She denies vomiting, abdominal pain, vaginal bleeding, headache, difficulty breathing, cough. Takes vitamins but no other medications, denies any surgeries except for D&C. No other medical history reported. She has not had the influenza vaccine. TRAVEL OUTSIDE OF THE [place] IN LAST 30 DAYS: No - Related Data Allergies/Adverse Reactions: No Known Allergies Allergy (Verified 05/29/18 19:57) Past Medical History - General Information source: Patient - Social History Smoking Status: Never Smoker Frequency of alcohol use: None Lives with: Family Family History: None, Reviewed & Not Pertinent - Medical History Medical History: Negative Renal/ Medical History: Denies: Hx Peritoneal Dialysis Past Surgical History: Reports: Hx Gynecologic Surgery - D&C - Immunizations Hx Diphtheria, Pertussis, Tetanus Vaccination: Yes Review of Systems - Review of Systems Constitutional: See HPI EENT: See HPI Cardiovascular: No symptoms reported Respiratory: No symptoms reported Gastrointestinal: See HPI Genitourinary: No symptoms reported Female Genitourinary: See HPI Musculoskeletal: No symptoms reported Skin: No symptoms reported Hematologic/Lymphatic: No symptoms reported Neurological/Psychological: No symptoms reported Physical Exam - Vital signs Vitals: Temp Pulse Resp BP Pulse Ox 101.0 F H 165 H 16 137/85 H 99 05/29/18 18:41 05/29/18 18:41 05/29/18 18:41 05/29/18 18:41 05/29/18 18:41 - Notes Notes: GENERAL: Alert, interacts well. No acute distress. HEAD: Normocephalic, atraumatic. EYES: Pupils equal, round, and reactive to light. Extraocular movements intact. ENT: Oral mucosa moist, tongue midline. Oropharynx unremarkable. Airway patent. Nares patent, no nasal septal hematoma, TM's intact. Left ear canal swollen with erythema, consistent with otitis externa. Mastoid is normal, no swelling of the ear, no abnormality noted of the eyes of the ENT exam. NECK: Full range of motion. Supple. Trachea midline. No nuchal rigidity. LUNGS: Clear to auscultation bilaterally, no wheezes, rales, or rhonchi. No respiratory distress. HEART: Tachycardia, normal rhythm, no murmur ABDOMEN: Gravid abdomen, soft, non-tender. Non-distended. Bowel sounds present in all 4 quadrants. GENITOURINARY: Deferred EXTREMITIES: Moves all 4 extremities spontaneously. No edema, normal radial and dorsalis pedis pulses bilaterally. No cyanosis. BACK: no cervical, thoracic, lumbar midline tenderness. No saddle anesthesia, normal distal neurovascular exam. NEUROLOGICAL: Alert and oriented x3. Normal speech. [cranial nerves II through XII grossly intact]. PSYCH: Normal affect, normal mood. SKIN: Flushed, hot Course - Re-evaluation Re-evalutation: Patient is tachycardic but she is nontoxic in appearance. She denies headache except for left ear pain, she has obvious left otitis externa, given Ciprodex. Otitis externa is not nail, the rest all symptoms are. She has no nuchal rigidity, no chest pain, benign abdomen with no abdominal pain or vaginal bleeding complaints, there is no rash. Patient given IV fluids, treated fever, given Reglan for reported vague nausea. Heart rate improved but tachycardia continued. I did offer patient pain medication because of her otitis externa but she declined because of . She was given additional IV fluids. I discussed chest x-ray because I do not have a cause of her fever yet, her urinalysis is normal, CBC shows mild leukocytosis with elevation of neutrophils but no bandemia, influenza test negative, strep test negative, chemistry generally unremarkable. Chest x-ray performed and is unremarkable. After additional IV fluids patient is still tachycardic. I discussed with Dr. Gomez. Recommends 1 more bag of IV fluids, trial of ambulation, if she is still tachycardic admit. Blood cultures pending. I did discuss this with patient and she is in agreement. Patient consistently tachycardic still, when she stands and walks her heart rate still 160 bpm. I discussed treatment of suspected underlying influenza with patient with Tamiflu but she declined, she states she is very familiar with Tamiflu and she does not want it under any circumstances. Discussed with Dr. Younger, DEVELOPMENT MANAGER music rehabilitation therapist, patient will be admitted to the second floor. Patient states agreement with plan. - Vital Signs Vital signs: Temp Pulse Resp BP Pulse Ox 98.8 F 131 H 17 129/77 H 100 05/30/18 03:46 05/30/18 03:46 05/30/18 03:46 05/30/18 03:46 05/30/18 03:46 - Laboratory Result Diagrams: 05/29/18 20:03 05/29/18 20:03 Laboratory results interpreted by me: 05/29/18 05/29/18 20:03 20:03 WBC 12.2 H Hgb 11.9 L Hct 35.4 L Seg Neutrophils % 84.6 H Lymphocytes % 8.8 L Absolute Neutrophils 10.3 H BUN 3 L ALT 7 L Discharge - Discharge Clinical Impression: Tachycardia, Third trimester Fever Qualifiers: Fever type: unspecified Qualified Code(s): R50.9 - Fever, unspecified Otitis externa Qualifiers: Otitis externa type: unspecified type Chronicity: acute Laterality: left Qualified Code(s): H60.502 - Unspecified acute noninfective otitis externa, left ear Condition: Stable Disposition: ADMITTED INPATIENT Admitting Provider: [facility] Admitted: Post
[2018-05-29 20:28] LABS: ABSOLUTE LYMPHOCYTES (AUTO) 1.1 10^3/uL (0.5-4.7); ABSOLUTE MONOCYTES (AUTO) 0.7 10^3/uL (0.1-1.4); ABSOLUTE NEUT (AUTO) 10.3 10^3/uL (1.7-8.2); BASOPHILS % (AUTO) 0.3 % (0-2); EOSINOPHILS % (AUTO) 0.3 % (0-6); HEMATOCRIT 35.4 % (36.0-47.0); HEMOGLOBIN 11.9 g/dL (12.0-15.5); LYMPHOCYTES % (AUTO) 8.8 % (13-45); MEAN CORPUSCULAR HEMOGLOBIN 30.8 pg (27.0-33.4); MEAN CORPUSCULAR HGB CONC 33.5 g/dL (32.0-36.0); MEAN CORPUSCULAR VOLUME 92 fl (80-97); PLATELET COUNT 285 10^3/uL (150-450); RED BLOOD COUNT 3.85 10^6/uL (3.72-5.28); SEGMENTED NEUTROPHILS % (AUTO) 84.6 % (42-78); TOTAL CELLS COUNTED % (AUTO) 100 %; WHITE BLOOD COUNT 12.2 10^3/uL (4.0-10.5)
[2018-05-29 20:32] LABS: APPEARANCE,URINE CLEAR; BILIRUBIN,URINE NEGATIVE (NEGATIVE); COLOR,URINE YELLOW; GLUCOSE, URINE NEGATIVE (NEGATIVE); KETONES,URINE NEGATIVE (NEGATIVE); LEUKOCYTE ESTERASE,URINE NEGATIVE (NEGATIVE); NITRITE,URINE NEGATIVE (NEGATIVE); PROTEIN,URINE NEGATIVE (NEGATIVE); URINE SPECIFIC GRAVITY 1.008; UROBILINOGEN,URINE NEGATIVE mg/dL (<2.0)
[2018-05-29 20:43] LABS: ALANINE AMINOTRANSFERASE 7 U/L (9-52); ALBUMIN 4.2 g/dL (3.5-5.0); ALKALINE PHOSPHATASE 89 U/L (38-126); ANION GAP 8 (5-19); ASPARTATE AMINO TRANSFERASE 33 U/L (14-36); BILIRUBIN,DIRECT 0.3 mg/dL (0.0-0.4); BILIRUBIN,TOTAL 0.5 mg/dL (0.2-1.3); BLOOD UREA NITROGEN 3 mg/dL (7-20); CALCIUM 9.7 mg/dL (8.4-10.2); CARBON DIOXIDE 26 mmol/L (22-30); CHLORIDE 103 mmol/L (98-107); GLUCOSE 90 mg/dL (75-110); POTASSIUM 4.5 mmol/L (3.6-5.0); SODIUM 137.3 mmol/L (137-145); TOTAL PROTEIN 7.8 g/dL (6.3-8.2)
[2018-05-29 21:19] LABS: A TYPE INFLUENZA AG NEGATIVE (NEGATIVE); B INFLUENZA AG NEGATIVE (NEGATIVE)
[2018-05-29] MEDS ORDERED: NORMAL SALINE 1000 ML 1,000 ML IV PRN (21:54)
--- NOTE | 2018-05-29 21:59 | RADIOLOGY REPORT (SQ) ---
XR CHEST 2 VIEWS HISTORY: Cough, fever, leukocytosis. COMPARISON: None. FINDINGS: The heart size is normal. The lungs are clear. No pleural effusions or pneumothorax is seen. No acute bony findings. IMPRESSION: No evidence of acute cardiopulmonary disease.
--- NOTE | 2018-05-30 04:06 | PDOC H&P ---
History of Present Illness Admission Date/PCP: 05/30/18 01:50 ABAD PULIDO NP Patient complains of: Fever, body aches, sore throat and left ear pain History of Present Illness: ROD WEATHERS is a 23 year old with intrauterine at 31 weeks, who receives care in [place], presented to [facility] emergency department, complaining of a sore throat, fever, body aches and left ear pain. Patient states that the left ear pain has been present for several weeks. The ED physician diagnosed her with otitis externa and gave her medication. Her swab for influenza and strep throat are both negative. She only had a low-grade fever in the ED. On presentation, this patient's pulse rate was 165. After 3 L of IV fluids, her heart rate went down to 130s and increased back to 160s whenever she stood up. She is being observed for tachycardia. Past Medical History LMP: October 2017 Gynecological Infection: No Past Surgical History Past Surgical History: Reports: None Social History Smoking Status: Never Smoker Frequency of Alcohol Use: None Hx Recreational Drug Use: No Drugs: None Hx Prescription Drug Abuse: No - Advance Directive Resuscitation Status: Full Code Family History Family History: None, Reviewed & Not Pertinent Parental Family History Reviewed: Yes Children Family History Reviewed: NA Sibling(s) Family History Reviewed.: NA Medication/Allergy Home Medications: Vits96/Iron Fum/Folic [ Tablet] 1 each PO DAILY 05/26/18 Allergies/Adverse Reactions: No Known Allergies Allergy (Verified 05/29/18 19:57) Review of Systems Constitutional: PRESENT: as per HPI Ears: PRESENT: as per HPI - Left ear pain for several weeks Nose, Mouth, and Throat: PRESENT: as per HPI - Sore throat Cardiovascular: PRESENT: as per HPI - Heart racing Musculoskeletal: PRESENT: as per HPI - Body aches Physical Exam - Physical Exam Vital Signs: Temp Pulse Resp BP Pulse Ox 99.1 F 165 H 25 H 129/92 H 100 05/30/18 00:58 05/29/18 18:41 05/30/18 02:01 05/30/18 02:00 05/30/18 02:01 Intake & Output 05/28/18 05/29/18 05/30/18 06:59 06:59 06:59 Intake Total 3000 Balance 3000 Weight 78.3 kg General appearance: PRESENT: no acute distress Respiratory exam: PRESENT: clear to auscultation mari Cardiovascular exam: PRESENT: RRR, tachycardia GI/Abdominal exam: PRESENT: normal bowel sounds, soft Extremities exam: ABSENT: calf tenderness, clubbing, full ROM, joint swelling, pedal edema, tenderness, +1 edema, +2 edema, other Result Laboratory Results: 05/29/18 20:03 05/29/18 20:03 05/29/18 05/29/18 05/29/18 20:03 20:03 20:03 WBC 12.2 H RBC 3.85 Hgb 11.9 L Hct 35.4 L MCV 92 MCH 30.8 MCHC 33.5 RDW 14.0 Plt Count 285 Seg Neutrophils % 84.6 H Lymphocytes % 8.8 L Monocytes % 6.0 Eosinophils % 0.3 Basophils % 0.3 Absolute Neutrophils 10.3 H Absolute Lymphocytes 1.1 Absolute Monocytes 0.7 Absolute Eosinophils 0.0 Absolute Basophils 0.0 Sodium 137.3 Potassium 4.5 Chloride 103 Carbon Dioxide 26 Anion Gap 8 BUN 3 L Creatinine 0.55 Est GFR ( Amer) > 60 Est GFR (Non-Af Amer) > 60 Glucose 90 Lactic Acid 0.9 Calcium 9.7 Total Bilirubin 0.5 AST 33 ALT 7 L Alkaline Phosphatase 89 Total Protein 7.8 Albumin 4.2 Urine Color Urine Appearance Urine pH Ur Specific [place] Urine Protein Urine Glucose (UA) Urine Ketones Urine Blood Urine Nitrite Ur Leukocyte Esterase Urine WBC (Auto) Urine RBC (Auto) 05/29/18 20:16 WBC RBC Hgb Hct MCV MCH MCHC RDW Plt Count Seg Neutrophils % Lymphocytes % Monocytes % Eosinophils % Basophils % Absolute Neutrophils Absolute Lymphocytes Absolute Monocytes Absolute Eosinophils Absolute Basophils Sodium Potassium Chloride Carbon Dioxide Anion Gap BUN Creatinine Est GFR ( Amer) Est GFR (Non-Af Amer) Glucose Lactic Acid Calcium Total Bilirubin AST ALT Alkaline Phosphatase Total Protein Albumin Urine Color YELLOW Urine Appearance CLEAR Urine pH 9.0 Ur Specific [place] 1.008 Urine Protein NEGATIVE Urine Glucose (UA) NEGATIVE Urine Ketones NEGATIVE Urine Blood NEGATIVE Urine Nitrite NEGATIVE Ur Leukocyte Esterase NEGATIVE Urine WBC (Auto) 1 Urine RBC (Auto) 0 Impressions: Chest X-Ray 05/29/18 21:27 IMPRESSION: No evidence of acute cardiopulmonary disease. Assessment & Plan - Diagnosis (1) Otitis externa Qualifiers: Otitis externa type: unspecified type Chronicity: acute Laterality: left Qualified Code(s): H60.502 - Unspecified acute noninfective otitis externa, left ear Is this a current diagnosis for this admission?: Yes (2) Tachycardia Is this a current diagnosis for this admission?: Yes (3) Third trimester Is this a current diagnosis for this admission?: Yes - Time Critical Time spent with patient: 15-24 minutes - Inpatient Certification Based on my medical assessment, after consideration of the patient's comorbidities, presenting symptoms, or acuity I expect that the services needed warrant INPATIENT care.: No - Plan Summary Plan Summary: 1. OBV--plan for discharge later today 2. Check thyroid function 3. Cont IV 4. Regular diet
[2018-05-30] MEDS ORDERED: RINGERS SOLUTION,LACTATED 1,000 ML IV PRN (04:09)
[2018-05-30] MEDS ORDERED: RINGERS SOLUTION,LACTATED 500 ML IV ONE (04:15)
[2018-05-30 04:48] LABS: FREE T3 3.36 pg/mL (2.77-5.27); FREE T4 (FREE THYROXINE) 0.52 ng/dL (0.78-2.19)
[2018-05-30 05:02] LABS: THYROID STIMULATING HORMONE 0.63 uIU/mL (0.47-4.68)
[2018-05-30 07:49] VITALS: BP 125/72
--- NOTE | 2018-05-30 09:11 | Discharge Summary ---
Discharge Summary (SDC) - Discharge Final Diagnosis: IUP 31 weeks otitis externa tachycardia Discharge Date: 05/30/18 Condition: Good Referrals: ABAD PULIDO NP [Primary Care Provider] - Follow up as needed Discharge Diet: As Tolerated Discharge Activity: Activity As Tolerated Home Care Assistance: None Needed Report the Following to Your Physician Immediately: Increase in Pain, Numbness, Tingling Sensation, Visual Disturbance, Weight Gain 2-3lbs a day, IV Site Infection Signs, Urinary Infection Signs
--- NOTE | 2018-05-30 22:16 | EKG REPORT ---
SEVERITY:- OTHERWISE NORMAL ECG - SINUS TACHYCARDIA : Confirmed by: Lynda Haji 30-May-2018 22:15:29
== END 2018-05-30 09:38 | disposition home or self-care (01) ==
LOC: ER 18:37 → EH 05-30 01:50 → INTOOBSV 05-30 01:50 → 2S 05-30 03:20
PROVIDERS: ADMIT Obstetrics & Gynecology; ATTEND Obstetrics & Gynecology
DX: O98.813 Other maternal infectious and parasitic diseases complicating pregnancy, third trimester (principal); H60.502 Unspecified acute noninfective otitis externa, left ear; O99.413 Diseases of the circulatory system complicating pregnancy, third trimester; R00.0 Tachycardia, unspecified; O26.893 Other specified pregnancy related conditions, third trimester; J02.9 Acute pharyngitis, unspecified; R50.9 Fever, unspecified; R11.0 Nausea; Z3A.31 31 weeks gestation of pregnancy
CPT/HCPCS: 93005; 99285; 96361; 96374; 36415 ×2; 87040; 87070; 84439; 87880; 84443; 85025; 80053; 81001; 84481; 83605; 87804; 71046; 93010; J2765; J3490; J7030 ×2; J7120

== ENCOUNTER 2018-06-01 04:33 | Outpatient (CLI) | payer OTHER ==
[2018-06-01 05:31] LABS: APPEARANCE,URINE SLIGHTLY-CLOUDY; BILIRUBIN,URINE NEGATIVE (NEGATIVE); COLOR,URINE YELLOW; GLUCOSE, URINE NEGATIVE (NEGATIVE); KETONES,URINE 80 mg/dL (NEGATIVE); LEUKOCYTE ESTERASE,URINE NEGATIVE (NEGATIVE); NITRITE,URINE NEGATIVE (NEGATIVE); PROTEIN,URINE 30 mg/dL (NEGATIVE); URINE SPECIFIC GRAVITY 1.017
[2018-06-01 05:48] LABS: URINE AMPHETAMINES SCREEN NEGATIVE; URINE BARBITURATES SCREEN NEGATIVE; URINE BENZODIAZEPINES SCREEN NEGATIVE; URINE COCAINE SCREEN NEGATIVE; URINE MARIJUANA (THC) SCREEN NEGATIVE; URINE METHADONE SCREEN NEGATIVE; URINE PHENCYCLIDINE SCREEN NEGATIVE
== END 2018-06-01 05:10 | disposition home or self-care (01) ==
LOC: LC 04:33
PROVIDERS: ATTEND Student in an Organized Health Care Education/Training Program
PROC: 4A1HXCZ Monitoring of Products of Conception, Cardiac Rate, External Approach (ICD-10-PCS; principal; 2018-06-01)
DX: O47.03 False labor before 37 completed weeks of gestation, third trimester (principal); Z3A.30 30 weeks gestation of pregnancy
CPT/HCPCS: 80307; 81001

== ENCOUNTER 2018-06-01 05:23 | Emergency (ER) | payer OTHER ==
[2018-06-01 05:33] VITALS: BP 140/93
--- NOTE | 2018-06-01 06:30 | ER Document Report ---
Entered by SCOOTER DEL RIO SCRIBE 06/01/18 0549 Acting as scribe for:GIOVANI ROLLINS DO ED General - General Chief Complaint: Cough Stated Complaint: SORE THROAT,SWEATING,COUGH Primary Care Provider: ABAD PULIDO NP [Primary Care Provider] - Follow up as needed Mode of Arrival: Ambulatory Information source: Patient Notes: 23-year-old female that is 31 weeks who presents to the emergency department today with complaints of throat pain for the last 2 days with an associated cough for the last 3 days. Patient states today she coughed up about a dime size amount of blood. Patient states she is slightly short of breath with exertion which has been consistent for her throughout . Patient complains of nasal congestion as well. Patient denies any dysuria. Patient is able to swallow. Patient was seen in labor and delivery and cleared for her lower abdominal pain just prior to arrival in the emergency department. States that she had some mild lower abdominal pain on the left-hand side prior to arrival, states that it resolved after she took a shower. States she was seen here 2 days ago and had negative chest x-ray, negative flu swab and negative strep swab. States that she was told at that time she had an infection but they were not sure where it was coming from. Patient states that today she would like to know where her infection is coming from. TRAVEL OUTSIDE OF THE [place] IN LAST 30 DAYS: No - Related Data Allergies/Adverse Reactions: No Known Allergies Allergy (Verified 05/29/18 19:57) Past Medical History - General Information source: Patient - Social History Smoking Status: Never Smoker Cigarette use (# per day): No Frequency of alcohol use: None Drug Abuse: None Lives with: Family Family History: None, Reviewed & Not Pertinent Past Surgical History: Reports: Hx Gynecologic Surgery - D&C - Immunizations Hx Diphtheria, Pertussis, Tetanus Vaccination: Yes Review of Systems - Review of Systems Constitutional: See HPI, Fever EENT: See HPI, Nose congestion, Throat pain Cardiovascular: No symptoms reported Respiratory: See HPI, Cough, Short of breath Gastrointestinal: No symptoms reported Genitourinary: denies: Dysuria Female Genitourinary: See HPI, Musculoskeletal: No symptoms reported Skin: No symptoms reported Hematologic/Lymphatic: No symptoms reported Neurological/Psychological: No symptoms reported -: Yes All other systems reviewed and negative Physical Exam - Vital signs Vitals: Temp Pulse Resp BP Pulse Ox 99.2 F 121 H 20 140/93 H 97 06/01/18 05:29 06/01/18 05:06/01/18 05:06/01/18 05:06/01/18 05:29 Interpretation: Tachycardic - Notes Notes: PHYSICAL EXAM GENERAL: Alert, interacts well. No acute distress. HEAD: Normocephalic, atraumatic. EYES: Pupils equal, round, and reactive to light. Extraocular movements intact. ENT: Oral mucosa moist, tongue midline. Petechiae on the soft palate. Cobblestoning. Postnasal drainage. Clear rhinorrhea bilaterally NECK: Full range of motion. Supple. Trachea midline. LUNGS: Clear to auscultation bilaterally, no wheezes, rales, or rhonchi. No respiratory distress. HEART: Tachycardic. No murmurs, gallops, or rubs. ABDOMEN: Gravid. Non-tender. EXTREMITIES: Moves all 4 extremities spontaneously. No edema, radial and dorsalis pedis pulses 2/4 bilaterally. No cyanosis. NEUROLOGICAL: Alert and oriented x3. Normal speech. PSYCH: Normal affect, normal mood. SKIN: Warm, dry, normal turgor. No rashes or lesions noted. Course - Re-evaluation Re-evalutation: 06/01/18 05:50 Urinalysis from labor and delivery shows 80 of ketones, small blood and no signs of infection. Blood cultures and throat cultures from the th are all negative after 48 hours. Patient is concerned because she states she was told 2 days ago that she had an infection but we were unable to tell where it is coming from. After examining the patient and discussing with her further patient appears to have a viral upper respiratory infection with cough. The trace hemoptysis is not concerning at this point. Discussed with patient that if she coughs up more than a handful of blood she should come back to the emergency department. Currently patient's blood pressure, respiratory rate and oxygenation are normal. No indication to look for a PE. Patient was counseled on supportive measures and discharged to home. - Vital Signs Vital signs: Temp Pulse Resp BP Pulse Ox 99.2 F 121 H 20 140/93 H 97 06/01/18 05:29 06/01/18 05:29 06/01/18 05:29 06/01/18 05:29 06/01/18 05:29 Discharge - Discharge Clinical Impression: Viral upper respiratory tract infection with cough, Hemoptysis, Third trimester Condition: Stable Disposition: HOME, SELF-CARE Additional Instructions: Upper Respiratory Illness You have a viral infection of the respiratory passages -- a "cold." This common infection causes nasal congestion, drainage, and often sore throat and cough. It is caused by a virus and is highly contagious. The disease usually lasts a week or more, though the worst symptoms are usually over in 3 or 4 days. There is no "cure" for the viral infection -- it must run its course. If there is a complication, such as bacterial infection in the nose, sinuses, middle ear, or bronchial tubes, antibiotics may be required, but antibiotics won't affect the virus. If you smoke, you should STOP!! Drink plenty of fluids. A humidifier may help. An expectorant medication or decongestant may make you more comfortable. You may take Claritin which is available [id number] for nasal congestion, you may also use nasal steroid such as Nasonex 1 squirt per nostril twice a day. Use acetaminophen for fever or aches. You may use whatever [id number] cough drops he would like to use in . Please use nasal saline rinses such as a NetiPot or NeilMed Sinus Rinses. See the doctor if fever persists over two or three days, if there is any significant worsening of your symptoms, or if you simply fail to improve as expected. Referrals: ABAD PULIDO PIPE ORGAN BUILDER [Primary Care Provider] - Follow up as needed Scribe Attestation: 06/01/18 06:30 I personally performed the services described in the documentation, reviewed and edited the documentation which was dictated to the scribe in my presence, and it accurately records my words and actions. I personally performed the services described in the documentation, reviewed and edited the documentation which was dictated to the scribe in my presence, and it accurately records my words and actions.
== END 2018-06-01 06:05 | disposition home or self-care (01) ==
LOC: ER 05:23
DX: O99.513 Diseases of the respiratory system complicating pregnancy, third trimester (principal); J06.9 Acute upper respiratory infection, unspecified; B97.89 Other viral agents as the cause of diseases classified elsewhere; J02.9 Acute pharyngitis, unspecified; J34.89 Other specified disorders of nose and nasal sinuses; O26.893 Other specified pregnancy related conditions, third trimester; R04.2 Hemoptysis; R06.02 Shortness of breath; R09.81 Nasal congestion; R09.82 Postnasal drip; Z3A.31 31 weeks gestation of pregnancy
CPT/HCPCS: 99283